=== PATIENT | female | born 1940 | race Caucasian/White ===

== ENCOUNTER → 2017-03-15 | Outpatient (CLI) | payer OTHER ==
[~2017-03-15] MED LIST: ASPI81TA82 PO; ATOR20TA PO; CALCTAB54; COEN400C PO; EPIP0.3I IM; HYDR12.56; LISI-357 PO; OMEP20TA PO; POTA75TA PO; PRED20 PO; RANI150 PO
--- NOTE | 2017-03-23 09:09 | RSPPFT ---
DATE OF PROCEDURE: 03/15/17 COMMENTS: VOLUMES DYNAMIC: FVC mildly reduced; FEV1 moderately reduced. STATIC: TLC, RV and FRC normal. FLOWS: FEV1% moderately reduced; FEF 25-75 severely reduced. DIFFUSION: Severely reduced. FLOW VOLUME LOOP: Pattern of variable intrathoracic airways obstruction. IMPRESSION: Moderately severe obstructive ventilatory defect with no significant hyperinflation. Diffusion capacity is severely reduced. Airways resistance is severely increased. Minimal change post-bronchodilator.
== END ==
LOC: PHRSP 10:44
PROVIDERS: ATTEND Internal Medicine
DX: J45.909 Unspecified asthma, uncomplicated (principal)
CPT/HCPCS: 94060; 94620; 94726; 94729